=== PATIENT | female | born 1990 | race American Indian/Alaskan Native ===

== ENCOUNTER 2019-06-09 03:52 | Outpatient (CLI) | payer MEDICAID ==
[2019-06-09 05:28] LABS: Bacteria,Urine 1+ /HPF (Negative); Bilirubin,Urine NEG (Negative); Blood,Urine LG (Negative); Color,Urine Yellow (Yellow); Mucus,Urine FEW /HPF; Protein,Urine <15 mg/dL mg/dL (Negative); Urobilinogen,Urine < 2.0 mg/dL (<2.0)
--- NOTE | 2019-06-09 06:02 | Ultrasound Report ---
Limited OB ultrasound for cervical length FINDINGS: Cervix measures 4.2 cm in length and is closed. Signer Name: Xavier Cobb MD Signed: 06/09/2019 5:57 AM Workstation Name: [id number]
[2019-06-09] MEDS ORDERED: cefTRIAXone/NS 1 GM/50 ML 1 GM/50 ML BAG IV ONE (06:25)
[2019-06-09 06:44] VITALS: BP 122/55
[2019-06-09] MEDS ORDERED: LACTATED RINGERS 500 ML IV ONE (07:16)
[2019-06-09] MEDS ORDERED: LACTATED RINGERS 1,000 ML ONE (07:18)
[2019-06-09 07:43] LABS: Alanine Aminotransferase 8 units/L (7-56); Uric Acid 3.3 mg/dL (3.5-7.6)
[2019-06-09 07:55] LABS: Hematocrit 30.7 % (30.3-42.9); Hemoglobin 9.6 gm/dl (10.1-14.3); Mean Corpuscular HGB Conc 31 % (30-34); Mean Corpuscular Volume 79 fl (79-97); Platelet Count 251 K/mm3 (140-440); Red Blood Count 3.89 M/mm3 (3.65-5.03); Red Cell Distribution Width 17.7 % (13.2-15.2)
--- NOTE | 2019-06-09 08:31 | Event Note ---
Date: 06/09/19 (I was having some spotting) Pt came in around 0400 this AM with c/o vaginal spotting @ 28 wks gestation. Initial BP's were 140'/90's. Pt denied ZABALA, blurred vision, spots before eyes, upper abdominal pain. Urine sample and lab work was sent to lab. Pre E labs were WNL, urine showed WBC and bacteria. Rocephin was ordered and given. My examination revealed no blood in vagina and cervical exam cl/th/hi. Her BP's are now 110's-120's/60's-70's. Consulted with Dr. Bishop and plan for pt to keep her scheduled appointments with [facility] (06/11), and keep scheduled appointment in the office in 2 wks. Pt Discharged home in stable condition.
== END 2019-06-09 08:40 | disposition home or self-care (01) ==
LOC: TRG 03:52
PROVIDERS: ATTEND Obstetrics & Gynecology
DX: O26.853 Spotting complicating pregnancy, third trimester (principal); O13.3 Gestational [pregnancy-induced] hypertension without significant proteinuria, third trimester; O47.03 False labor before 37 completed weeks of gestation, third trimester; Z3A.28 28 weeks gestation of pregnancy
CPT/HCPCS: 36415; 76815; 81001; 82565; 83615; 84450; 84460; 84550; 85027; 87086; 96365; J0696; J7120; 96360

== ENCOUNTER 2019-08-21 13:34 | Outpatient (CLI) | payer MEDICAID ==
[2019-08-21 15:07] LABS: Bilirubin,Urine NEG (Negative); Blood,Urine NEG (Negative); Color,Urine Yellow (Yellow); Protein,Urine <15 mg/dL mg/dL (Negative); Urobilinogen,Urine < 2.0 mg/dL (<2.0)
[2019-08-21] MEDS ORDERED: LACTATED RINGERS 1000 ML IV SOLN ONE (15:30)
[2019-08-21] MEDS ORDERED: LACTATED RINGERS 1,000 ML IV ONE (15:30)
[2019-08-21 16:11] LABS: Hemoglobin 10.1 gm/dl (10.1-14.3); Mean Corpuscular HGB Conc 32 % (30-34); Mean Corpuscular Volume 78 fl (79-97); Platelet Count 283 K/mm3 (140-440); Red Blood Count 4.11 M/mm3 (3.65-5.03); Red Cell Distribution Width 18.9 % (13.2-15.2)
[2019-08-21 16:29] LABS: Alanine Aminotransferase 13 units/L (7-56); Uric Acid 4.6 mg/dL (3.5-7.6)
[2019-08-21 16:41] VITALS: BP 145/89
--- NOTE | 2019-08-21 16:57 | Event Note ---
Date: 08/21/19 pt reports her ZABALA has resolved. Labs reviewed NL. FHT reactive. Patient reports feeling 2 ctx the whole time she was here. c/s scheduled sunday. d/c home in stable condition.
== END 2019-08-21 17:30 | disposition home or self-care (01) ==
LOC: TRG 13:34 → APU 13:35 → TRG 17:30
PROVIDERS: ATTEND Obstetrics & Gynecology
DX: O26.893 Other specified pregnancy related conditions, third trimester (principal); R51 Headache; O13.3 Gestational [pregnancy-induced] hypertension without significant proteinuria, third trimester; Z3A.38 38 weeks gestation of pregnancy
CPT/HCPCS: 36415; 59025; 81001; 82565; 83615; 84450; 84460; 84550; 85027; 96360; J7120